=== PATIENT | female | born 1995 | race Caucasian/White ===

== ENCOUNTER → 2018-12-23 17:40 | Observation (INO) ==
[2018-12-23 17:19] LABS: Basophils % 0.2 %; Eosinophils % 0.4 %; Hematocrit 38.5 % (35.3-44.9); Hemoglobin 13.4 g/dL (11.5-15.4); Immature Granulocytes % 0.5 % (0-4); Lymphocytes # 1.3 K/mcL (0.6-4.6); Lymphocytes % 13.5 %; Mean Corpuscular HGB Conc 34.8 g/dL (31.6-35.5); Mean Corpuscular Hemoglobin 32.4 pg (28.0-33.3); Mean Corpuscular Volume 93.2 fL (83.0-100.0); Mean Platelet Volume 11.6 fL (9.4-12.4); Monocytes # 0.9 K/mcL (0.0-1.3); Neutrophils # 7.6 K/mcL (1.6-8.9); Platelet Count 222 K/mcL (140-400); Red Blood Count 4.13 M/mcL (3.82-4.97); Red Cell Distribution Width 12.9 % (11.5-14.5); Segmented Neutrophils % 76.4 %
[2018-12-23 17:23] LABS: Amphetamine Screen,Urine Negative ng/mL (Cutoff=1000); Barbiturate Screen,Urine Negative ng/mL (Cutoff=200); Benzodiazepines Screen,Urine Negative ng/mL (Cutoff=200); Cannabinoid Screen,Urine Negative ng/mL (Cutoff = 50); Cocaine Screen,Urine Negative ng/mL (Cutoff= 300); Opiate Screen,Urine Negative ng/mL (Cutoff=300); Phencyclidine Screen,Urine Negative ng/mL (Cutoff=25)
[2018-12-23 17:24] LABS: Protein/Creatinine Ratio,Urine 0.17 mg/mg (0.00-0.20)
[2018-12-23 17:32] LABS: Alanine Aminotransferase 13 Units/L (7-52); Aspartate Amino Transferase 15 Units/L (13-39); BUN/Creatinine Ratio 14 (6-26); Blood Urea Nitrogen 7 mg/dL (6-20); Lactate Dehydrogenase 142 Units/L (140-271); Uric Acid 7.4 mg/dL (2.3-7.6); eGFR For Non-African Americans > 60 (> 60)
--- NOTE | 2018-12-23 17:42 | OB/GYN Progress Note ---
Date of Encounter: 12/23/18 Time of Encounter: 17:52 Subjective - Subjective Interval history: 23 year-old female presenting at 33w3d from office for elevated BP while at nurse visit for celestone injection. BP in office was 156/112. Pt reports she was very anxious about getting the shot today. She denies FLYNN, vision changes, leaking or bleeding. Good FM. complicated by IUGR for which she is followed with NSTs biweekly, weekly DIANE/dopplers, and growth US every 2 weeks. Antepartum ROS: movement normal, no loss of fluid, no vaginal bleeding, no contractions Objective - Vital Signs Vital Signs: Intake and Output 12/23/18 12/23/18 12/23/18 07:59 15:59 23:59 Other: Weight 94.3 kg Patient Weight 12/23/18 23:59 Weight 94.3 kg - Exam FHR: category 1 FHR comments: NST [id number] BPM - Labs Labs: Abnormal lab results 0.49 mg/dL (0.60-1.20) L 12/23/18 16:49 36 mg/dL (1-14) H 12/23/18 16:49
== END | disposition home or self-care (01) ==
LOC: 1NENULAB
PROVIDERS: ADMIT Registered Nurse; ATTEND Registered Nurse

== ENCOUNTER → 2021-06-23 13:17 | Observation (INO) ==
[2021-06-23 12:43] LABS: Bacteria,Urine Few per hpf (None-Few); Bilirubin,Urine Negative (Negative); Blood,Urine Large (Negative); Clarity,Urine Ex.Turbid (Clear); Color,Urine Yellow (Yellow); Glucose,Urine (UA) Normal (Normal); Ketones,Urine Trace mg/dL (Negative); Leukocyte Esterase,Urine Moderate (Negative); Mucus,Urine Few per lpf (None-Few); Nitrite,Urine Negative (Negative); PH,Urine 6.5 pH Units (5.0-8.0); Protein,Urine 50 mg/dL (Neg-Trace); RBC,Urine TNTC per hpf (0-3); Squamous Epithelial Cell,Urine Many per hpf (None-Few); Urobilinogen,Urine Normal (Normal); WBC,Urine 15-30 per hpf (0-3)
[2021-06-23 14:23] LABS: Candida DNA Not Detected (Not Detect); Gardnerella DNA DETECTED (Not Detect); Trichomonas DNA Not Detected (Not Detect)
== END | disposition home or self-care (01) ==
LOC: 1NENULAB
PROVIDERS: ADMIT Advanced Practice Midwife; ATTEND Advanced Practice Midwife

== ENCOUNTER 2021-08-23 17:59 | Inpatient (IN) ==
[~2021-08-23 17:59] MED LIST: Azithromycin 500 MG in 0.9 % Sodium Chloride 250 ML IVPB PRN; Famotidine 20 MG/2 ML VIAL IVP PRN; Metoclopramide 10 MG/2 ML VIAL IVP PRN; Naloxone 0.4 MG/ML INJ IVP PRN
[2021-08-23] MEDS ORDERED: Ringers Solution, Lactated 1,000 ML IVC SCH (18:00)
[2021-08-23] MEDS ORDERED: Oxytocin 20 units/ LR 1000 mL 20 UNIT/1,000 ML BAG IVC SCH (18:00)
[2021-08-23] MEDS ORDERED: Ringers Solution, Lactated 1,000 ML ONE (18:19)
[2021-08-23 18:29] LABS: Basophils % 0.1 %; Eosinophils # 0.1 K/mcL (0.0-0.6); Eosinophils % 0.7 %; Hematocrit 36.9 % (35.3-44.9); Hemoglobin 12.9 g/dL (11.5-15.4); Immature Granulocytes % 0.5 % (0-4); Lymphocytes # 1.2 K/mcL (0.6-4.6); Mean Corpuscular Hemoglobin 33.1 pg (28.0-33.3); Mean Corpuscular Volume 94.6 fL (83.0-100.0); Mean Platelet Volume 9.8 fL (9.4-12.4); Monocytes # 0.5 K/mcL (0.0-1.3); Monocytes % 5.1 %; Neutrophils # 8.5 K/mcL (1.6-8.9); Platelet Count 233 K/mcL (140-400); Red Cell Distribution Width 12.7 % (11.5-14.5); Segmented Neutrophils % 81.6 %; White Blood Count 10.4 K/mcL (4.3-11.1)
[2021-08-23 18:38] LABS: Amphetamine Screen,Urine Negative ng/mL (Cutoff=1000); Barbiturate Screen,Urine Negative ng/mL (Cutoff=200); Benzodiazepines Screen,Urine Negative ng/mL (Cutoff=200); Cannabinoid Screen,Urine Negative ng/mL (Cutoff = 50); Cocaine Screen,Urine Negative ng/mL (Cutoff= 300); Opiate Screen,Urine Negative ng/mL (Cutoff=300); Phencyclidine Screen,Urine Negative ng/mL (Cutoff=25)
[2021-08-23 19:09] LABS: Influenza A PCR Negative (Negative); Influenza B PCR Negative (Negative); Resp. Syncytial Virus PCR Negative (Negative)
[2021-08-23 19:10] LABS: SARS-CoV-2 by PCR (In House) Negative (Negative)
[2021-08-23] MEDS ORDERED: Lidocaine 1% 20 ML MDV INFILT PRN (22:24)
[2021-08-23] MEDS ORDERED: Ondansetron 4 MG/2 ML VIAL IVP PRN (22:24)
[2021-08-23] MEDS ORDERED: Ondansetron 4 MG/2 ML VIAL ONE (22:27)
[2021-08-23] MEDS: *HR* Nalbuphine 10 MG/ML AMPUL IV PRN (22:36)
[2021-08-24] MEDS: *HR* Nalbuphine 10 MG/ML AMPUL IV PRN (00:14)
[2021-08-24] MEDS ORDERED: Ondansetron ODT 4 MG TAB.RAPDIS SL PRN (04:15)
[2021-08-24] MEDS ORDERED: Oxytocin 20 units/ LR 1000 mL 20 UNIT/1,000 ML BAG IVC SCH (04:15)
[2021-08-24] MEDS ORDERED: Measles/Mumps/Rubella Vacc 0.5 ML VIAL SQ PRN (04:15)
[2021-08-24] MEDS ORDERED: Benzocaine/Menthol 56 GM AEROSOL SPRAY TP PRN (04:15)
[2021-08-24] MEDS ORDERED: Lanolin 7 G OINT...G. TP PRN (04:15)
[2021-08-24] MEDS ORDERED: Rho Immune Globulin 1,500 UNIT SYRINGE IM PRN (04:15)
[2021-08-24] MEDS: Ibuprofen 600 MG TABLET PO SCH ×4 (04:54→22:20)
[2021-08-24] MEDS: Acetaminophen 325 MG TABLET PO SCH ×4 (04:55→22:19)
[2021-08-24] MEDS ORDERED: Prenatal Vit/FA 1 EACH TABLET PO SCH ×2 (09:00)
[2021-08-24 12:57] VITALS: O2SAT 98
[2021-08-25] MEDS: Acetaminophen 325 MG TABLET PO SCH (04:16)
[2021-08-25] MEDS: Ibuprofen 600 MG TABLET PO SCH (04:16)
[2021-08-25 07:40] VITALS: BP 110/78; PULSE 89; TEMP 97.6
== END 2021-08-25 12:00 | disposition home or self-care (01) | DRG 807 ==
LOC: 1NENULAB → 1NENUOBS 08-24 03:59
PROVIDERS: ADMIT Student in an Organized Health Care Education/Training Program; ATTEND Student in an Organized Health Care Education/Training Program